=== PATIENT | male | born 1965 | race Caucasian/White ===

== ENCOUNTER 2022-02-17 05:24 | Emergency (ER) | payer BC ==
[~2022-02-17] VITALS: Ht 177.8 cm; Wt 96.4 kg
[2022-02-17 05:29] VITALS: BP 170/90
[2022-02-17 05:57] LABS: CLARITY,URINE SLIGHTLY CLOUDY (Clear); COLOR,URINE YELLOW (Yellow); GLUCOSE, URINE NEGATIVE (Neg); KETONES,URINE NEGATIVE (Neg); LEUKOCYTE ESTERASE ,URINE NEGATIVE (Neg); NITRITES, URINE NEGATIVE (Neg); OCCULT BLOOD,URINE TRACE-INTACT (Neg); PROTEIN,URINE NEGATIVE (Neg); UROBILINOGEN,URINE 0.2 E.U/dL (0.2-1.0)
[2022-02-17 05:59] LABS: UA COLLECTION TYPE CLN CATCH MIDSTREAM
[2022-02-17 06:14] LABS: MUCUS STRANDS MANY /LPF (Neg); SQUAMOUS EPITHELIAL CELL,UR FEW /LPF (FEW)
[2022-02-17 06:16] LABS: BACTERIA,URINE 1+ /HPF (Neg); WBC,URINE 0-4 /HPF (0-4)
[2022-02-17 06:26] LABS: ALANINE AMINOTRANSFERASE 30 U/L (12-78); ALBUMIN 3.9 G/DL (3.4-5.0); ALBUMIN/GLOBULIN RATIO 1.2 (1.1-1.5); ALKALINE PHOSPHATASE 112 IU/L (46-116); ANION GAP 8 (8-16); ASPARTATE AMINO TRANSFERASE 24 U/L (10-37); BILIRUBIN,TOTAL 0.4 MG/DL (0.1-1.0); BLOOD UREA NITROGEN 19 MG/DL (7-18); BUN/CREATININE RATIO 14.6 (5.4-32.0); CALCIUM 8.8 MG/DL (8.5-10.1); CHLORIDE 106 MMOL/L (99-107); GLUCOSE 114 MG/DL (70-104); LIPASE 131 U/L (73-393); POTASSIUM 3.7 MMOL/L (3.5-5.1); SODIUM 142 MMOL/L (135-145); TOTAL CARBON DIOXIDE 27.8 MMOL/L (24-32); TOTAL PROTEIN 7.2 G/DL (6.4-8.2); eGFR 57 ML/MIN
[2022-02-17 06:40] LABS: BASOPHILS % (AUTO) 0.5 % (0-1); EOSINOPHILS # (AUTO) 0.1 X10'3 (0-0.9); EOSINOPHILS % (AUTO) 1.2 % (0-6); HEMATOCRIT 47.3 % (42.0-52.0); HEMOGLOBIN 16.9 g/dl (14.0-17.9); LYMPHOCYTES # (AUTO) 1.3 X10'3 (1.1-4.8); LYMPHOCYTES % (AUTO) 15.6 % (21-51); MEAN CORPUSCULAR HEMOGLOBIN 32.1 PG (27.0-31.0); MEAN CORPUSCULAR HGB CONC 35.6 g/dL (33.0-36.5); MEAN CORPUSCULAR VOLUME 90.2 FL (78-98); MONOCYTES # (AUTO) 0.4 X10'3 (0-0.9); MONOCYTES % (AUTO) 5.3 % (2-12); NEUTROPHILS # (AUTO) 6.2 X10'3 (1.8-7.7); NEUTROPHILS % (AUTO) 77.4 % (42-75); PLATELET COUNT 203 X10'3 (140-440); RED BLOOD COUNT 5.25 X10'6 (4.70-6.10); RED CELL DISTRIBUTION WIDTH 12.6 % (11.5-14.5)
[2022-02-17 07:10] LABS: PLATELET ESTIMATE NORMAL; SPHEROCYTES 1+
[2022-02-17] MEDS ORDERED: iohexol 350MG/ML 100ml bottle IV ONE (07:31)
--- NOTE | 2022-02-17 07:53 | NUR ---
to/from ct without incident.
[2022-02-17] MEDS ORDERED: ondansetron/PF 4mg/2ml inj IV ONE (08:00)
[2022-02-17] MEDS ORDERED: normal saline 1000ml 1,000 ML IV ONE (08:00)
[2022-02-17] MEDS ORDERED: morphine 2 MG/ML inj. syringe IV ONE (08:00)
[2022-02-17] MEDS ORDERED: LEVO750T68 PO (08:25)
[2022-02-17] MEDS ORDERED: ACET-1008 PO (08:25)
[2022-02-17] MEDS ORDERED: FLO0.4C PO (08:25)
[2022-02-17] MEDS ORDERED: HYDR-3965 PO (08:25)
[2022-02-17] MEDS ORDERED: HYDROcodone/acetaminophen 5mg/325mg tablet PO ONE (09:40)
== END 2022-02-17 09:52 | disposition home or self-care (01) ==
LOC: ER 05:28
DX: N20.0 Calculus of kidney (principal); R10.84 Generalized abdominal pain; R53.1 Weakness; R11.10 Vomiting, unspecified; I10 Essential (primary) hypertension; Z79.2 Long term (current) use of antibiotics; Z79.899 Other long term (current) drug therapy
CPT/HCPCS: 36415; 74178; 80053; 81001; 83690; 85008; 85025; 96361; 96374; 96375; 99285; J2270; J2405; J3490; J7030; Q9967